=== PATIENT | female | born 1965 | race Caucasian/White ===

== ENCOUNTER 2017-08-24 12:49 | Emergency (ER) | payer BC ==
[~2017-08-24] VITALS: Ht 157.5 cm; Wt 49.9 kg
[2017-08-24 13:00] VITALS: BP 123/57
--- NOTE | 2017-08-24 13:09 | PHYS DOC ---
Adult General Chief Complaint Chief Complaint: LOWER BACK PAIN OR INJURY HPI HPI Patient is a 52 year old female presents to the ED complaining of back injury 2 hours ago. Patient states that she bent down to orange picker the broom and felt a pull/pop in her back. Describes the pain as 9 out of 10. Rates the pain as sharp. States the pain radiates down her left leg. States she has a history of a back injury. No previous back surgeries. Denies bowel/bladder changes, saddle anesthesia, abdominal pain, diarrhea, nausea/vomiting, chest pain or shortness of breath. Review of Systems Review of Systems Constitutional: Denies fever or chills [] Eyes: Denies change in visual acuity, redness, or eye pain [] HENT: Denies nasal congestion or sore throat [] Respiratory: Denies cough or shortness of breath [] Cardiovascular: No additional information not addressed in HPI [] GI: Denies abdominal pain, nausea, vomiting, bloody stools or diarrhea [] : Denies dysuria or hematuria [] Musculoskeletal: Complains of left-sided back pain. [] Integument: Denies rash or skin lesions [] Neurologic: Denies headache, focal weakness or sensory changes [] Endocrine: Denies polyuria or polydipsia [] All other systems were reviewed and found to be within normal limits, except as documented in this note. Current Medications Current Medications Current Medications Medications (Trade) Dose Ordered Sig/Pepe Start Time Stop Time Status Last Admin Dose Admin Acetaminophen/ Hydrocodone Bitart (Lortab 5/325) 1 tab 1X ONCE 08/24/17 13:30 08/24/17 13:31 DC 08/24/17 13:28 1 TAB Diazepam (Valium) 5 mg 1X ONCE 08/24/17 13:30 08/24/17 13:31 DC 08/24/17 13:28 5 MG Allergies Allergies Allergies Coded Allergies Type Severity Reaction Last Updated Verified No Known Drug Allergies 08/24/17 No Physical Exam Physical Exam Constitutional: Well developed, well nourished, no acute distress, non-toxic appearance. [] HENT: Normocephalic, atraumatic, bilateral external ears normal, oropharynx moist, no oral exudates, nose normal. [] Eyes: PERRLA, EOMI, conjunctiva normal, no discharge. [] Neck: Normal range of motion, no tenderness, supple, no stridor. [] Cardiovascular:Heart rate regular rhythm, no murmur [] Lungs & Thorax: Bilateral breath sounds clear to auscultation [] Abdomen: Bowel sounds normal, soft, no tenderness, no masses, no pulsatile masses. [] refused rectal exam. Skin: Warm, dry, no erythema, no rash. [] Back: Mild lumbar paraspinal tenderness. no CVA tenderness. [] Extremities: No tenderness, no cyanosis, no clubbing, ROM intact, no edema. [] Neurologic: Alert and oriented X 3, normal motor function, normal sensory function, no focal deficits noted. [] Psychologic: Affect normal, judgement normal, mood normal. [] Current Patient Data Vital Signs Vital Signs Date Time Temp Pulse Resp B/P (MAP) Pulse Ox O2 Delivery O2 Flow Rate FiO2 08/24/17 13:28 16 98 Room Air 08/24/17 13:00 98.2 86 123/57 (79) 98.2 EKG EKG [] Radiology/Procedures Radiology/Procedures PROCEDURE: LUMBAR SPINE 2-3V Examination: 2 views of the lumbar spine History: History of pain from fall Comparison: None available Findings: The vertebral body heights are maintained. No evidence of listhesis. The facets are well aligned. Impression: No acute osseous findings. [] Course & Med Decision Making Course & Med Decision Making Pertinent Labs and Imaging studies reviewed. (See chart for details) []X-ray negative for acute injury. Patient's pain improved. Vital stable, no acute distress. No focal neural deficits. Patient able to ambulate without assistance. Discussed follow-up with orthopedic spine in 1-2 days. Provided contact information/education. Discussed reasons to return to the ED. Patient understands and agrees with plan. Family at bedside. Dragon Disclaimer Dragon Disclaimer This electronic medical record was generated, in whole or in part, using a voice recognition dictation system. Departure Departure Impression: Primary Impression: Back injury Additional Impression: Muscle strain Disposition: 01 HOME, SELF-CARE Condition: IMPROVED Referrals: NON,STAFF (PCP) MARGO LACKEY MD Patient Instructions: Back Pain, Adult, Muscle Strain Scripts Cyclobenzaprine Hcl (CYCLOBENZAPRINE HCL) 5 Mg Tablet 1 TAB PO TID, #12 TAB Prov: IRVING KAY 08/24/17 Hydrocodone/Apap 5-325 (NORCO 5-325 TABLET) 1 Each Tablet 1 TAB PO TID, #10 TAB Prov: IRVING KAY 08/24/17 Problem Qualifiers IRVING KAY Aug 24, 2017 13:09
[2017-08-24] MEDS ORDERED: HYDROcodone/APAP 5/325MG 1 TAB TABLET PO ONE (13:30)
[2017-08-24] MEDS ORDERED: diazePAM 5 MG TABLET PO ONE (13:30)
--- NOTE | 2017-08-24 13:44 | RAD ---
Examination: 2 views of the lumbar spine History: History of pain from fall Comparison: None available Findings: The vertebral body heights are maintained. No evidence of listhesis. The facets are well aligned. Impression: No acute osseous findings.
[2017-08-24] MEDS ORDERED: CYCL5TAB PO (13:51)
[2017-08-24] MEDS ORDERED: HYDR-971 PO (13:51)
== END 2017-08-24 13:57 | disposition home or self-care (01) ==
LOC: ER 12:49
DX: S39.012A Strain of muscle, fascia and tendon of lower back, initial encounter (principal); X50.9XXA Other and unspecified overexertion or strenuous movements or postures, initial encounter; Y93.89 Activity, other specified; Y99.8 Other external cause status; Y92.89 Other specified places as the place of occurrence of the external cause
CPT/HCPCS: 72100; 99284